=== PATIENT | female | born 1960 | race Caucasian/White ===

== ENCOUNTER → 2019-01-21 | Outpatient (CLI) | payer OTHER | END | disposition home or self-care (01) | LOC: NUCLEAR 08:00 | DX: C50.812 Malignant neoplasm of overlapping sites of left female breast (principal) | CPT/HCPCS: 78815; A9552 ==

== ENCOUNTER 2025-04-15 11:05 | Outpatient (CLI) | payer OTHER | END 2025-04-15 11:07 | disposition home or self-care (01) | LOC: TOM 11:05 | DX: M19.012 Primary osteoarthritis, left shoulder (principal) ==